=== PATIENT | female | born 1970 | race Caucasian/White ===

== ENCOUNTER → 2017-08-02 | Outpatient (CLI) | payer BC | LOC: FIMAGING 13:39 | PROVIDERS: ATTEND Obstetrics & Gynecology | DX: Z12.31 Encounter for screening mammogram for malignant neoplasm of breast (principal); Z80.3 Family history of malignant neoplasm of breast | CPT/HCPCS: G0202 ==

== ENCOUNTER → 2017-11-16 | Outpatient (CLI) | payer BC | LOC: FIMAGING 10:43 | PROVIDERS: ATTEND Family Medicine | DX: R31.9 Hematuria, unspecified (principal); R50.9 Fever, unspecified; M54.9 Dorsalgia, unspecified; D25.9 Leiomyoma of uterus, unspecified ==

== ENCOUNTER → 2018-09-04 | Outpatient (CLI) | payer BC | LOC: FIMAGING 12:20 | PROVIDERS: ATTEND Obstetrics & Gynecology | DX: Z12.31 Encounter for screening mammogram for malignant neoplasm of breast (principal) ==

== ENCOUNTER → 2018-09-13 | Outpatient (CLI) | payer BC | LOC: BRMIMAGING 09:47 | PROVIDERS: ATTEND Obstetrics & Gynecology | DX: N60.12 Diffuse cystic mastopathy of left breast (principal) | CPT/HCPCS: 76641-PO ==

== ENCOUNTER → 2019-04-18 | Outpatient (CLI) | payer BC | LOC: BMCIMAGING 16:14 ==